=== PATIENT | female | born 1995 | race Asian ===

== ENCOUNTER 2017-08-31 14:49 | Emergency (ER) | payer OTHER ==
[2017-08-31 14:54] VITALS: TEMP 98.2; BMI 22.2
--- NOTE | 2017-08-31 15:47 | PDOC ---
History of Present Illness - History of Present Illness Initial Comments: Patient is a 22 F, , who presents with her for nausea, vomiting , and weakness today. Patient reports that today she began feeling nauseous and vomited (2x) after eating. Patient also reports passing out while sitting on the couch. She states she has not drank any water. She has an appointment with her OBGyn on Saturday. She reports that she has been nauseous throughout her , which also occurred throughout her first . She denies any vaginal discharge, bleeding, spotting, or abdominal cramping. ObGyn: Krystle Jones 08/31/17 16:19 <Fely Butterfield - Last Filed: 08/31/17 16:23> <Love Trammell - Last Filed: 08/31/17 18:46> - General Chief Complaint: Nausea/Vomiting Stated Complaint: WEAKNESS ( 12 WEEKS PREG) Time Seen by Provider: 08/31/17 15:45 Past History <Fely Butterfield - Last Filed: 08/31/17 16:23> - Past Medical History Asthma: No Cancer: No Cardiac Disorders: No Diabetes: No HTN: No Seizures: No Thyroid Disease: No - Suicide/Smoking/Psychosocial Hx Smoking History: Never smoked Have you smoked in the past 12 months: No Information on smoking cessation initiated: No Hx Alcohol Use: No Drug/Substance Use Hx: No Substance Use Type: None Hx Substance Use Treatment: No <Love Trammell - Last Filed: 08/31/17 18:46> - Past Medical History Allergies/Adverse Reactions: Allergies Allergy/AdvReac Type Severity Reaction Status Date / Time No Known Allergies Allergy Verified 08/31/17 14:54 Home Medications: Ambulatory Orders Acetaminophen [Tylenol .Regular Strength -] 650 mg PO Q3H PRN #0 tablet Ferrous Sulfate [Feosol] 325 mg PO BIDWM ud 05/25/16 Vitamins (Sjr) - 1 tab PO DAILY tablet 05/25/16 Review of Systems - Review of Systems Comments:: GENERAL/CONSTITUTIONAL: No fever or chills. No weakness. HEAD, EYES, EARS, NOSE AND THROAT: No change in vision. No ear pain or discharge. No sore throat. GASTROINTESTINAL: +nausea, +vomiting, no diarrhea or constipation. GENITOURINARY: No dysuria, frequency, or change in urination. CARDIOVASCULAR: No chest pain or shortness of breath. RESPIRATORY: No cough, wheezing, or hemoptysis. MUSCULOSKELETAL: No joint or muscle swelling or pain. No neck or back pain. SKIN: No rash NEUROLOGIC: No headache, vertigo, loss of consciousness, or change in strength/ sensation. ENDOCRINE: No increased thirst. No abnormal weight change. HEMATOLOGIC/LYMPHATIC: No anemia, easy bleeding, or history of blood clots. ALLERGIC/IMMUNOLOGIC: No hives or skin allergy. <Fely Butterfield - Last Filed: 08/31/17 16:23> *Physical Exam - Vital Signs Last Vital Signs Temp Pulse Resp BP Pulse Ox 98.2 F 77 16 96/53 100 08/31/17 14:52 08/31/17 14:52 08/31/17 14:52 08/31/17 14:52 08/31/17 14:52 - Physical Exam Comments: Constitutional: Awake, alert, oriented. No acute distress. Head: Normocephalic. Atraumatic Eyes: PERRL. EOMI. Conjunctivae are not pale. ENT: Mucous membranes are moist and intact. Posterior pharynx without exudates or erythema. Uvula midline. Neck: Supple. Full ROM. No lymphadenopathy. Cardiovascular: Regular rate. Regular rhythm. S1, S2 regular. Distal pulses are 2+ and symmetric. Pulmonary/Chest: No evidence of respiratory distress. Clear to auscultation bilaterally No wheezing, rales or rhonchi. Abdominal: Soft and non-distended. There is no tenderness. No rebound, guarding or rigidity. No organomegaly. No palpable masses. Good bowel sounds. Back: No CVA tenderness. Musculoskeletal: No edema. No cyanosis. No clubbing. Full range of motion in all extremities. Nocalf tenderness. Radial/pedal pulses are intact and 2+ bilaterally Skin: Skin is warm and dry. No petechiae. No purpura. Neurological: Alert and oriented to person, place, and time. Cranial nerves II -XII are grossly intact. Normal speech. Strength is grossly symmetric. No sensory deficits. Psychiatric: Good eye contact. Normal interaction, affect and behavior. 08/31/17 16:24 <Fely Butterfield - Last Filed: 08/31/17 16:23> - Vital Signs Last Vital Signs Temp Pulse Resp BP Pulse Ox 98.2 F 77 16 96/53 100 08/31/17 14:52 08/31/17 14:52 08/31/17 14:52 08/31/17 14:52 08/31/17 14:52 <Love Trammell - Last Filed: 08/31/17 18:46> ED Treatment Course - LABORATORY CBC & Chemistry Diagram: 08/31/17 16:00 08/31/17 16:00 - ADDITIONAL ORDERS Additional order review: 08/31/17 16:00 RBC 4.64 MCV 78.2 L MCHC 33.7 RDW 13.6 MPV 7.5 Neutrophils % 80.8 Lymphocytes % 12.9 Monocytes % 5.2 Eosinophils % 0.7 Basophils % 0.4 - Medications Given in the ED: ED Medications Discontinued Medications Generic Name Dose Route Start Last Admin Trade Name Garrisonq PRN Reason Stop Dose Admin Metoclopramide HCl 10 mg 08/31/17 16:05 08/31/17 16:16 Reglan Injection - IVPUSH 08/31/17 16:06 10 mg ONCE ONE Administration Sodium Chloride 1,000 ml 08/31/17 16:05 08/31/17 16:16 Normal Saline - IV 08/31/17 16:06 1,000 ml ONCE ONE Administration <Fely Butterfield - Last Filed: 08/31/17 16:23> - LABORATORY CBC & Chemistry Diagram: 08/31/17 16:00 08/31/17 16:00 <Love Trammell - Last Filed: 08/31/17 18:46> Medical Decision Making - Medical Decision Making 08/31/17 16:08 a/p: 22yo at about 12 weeks gestation with n/v x 2 today and "blacked out" for a few seconds on the cough -cramping in the abd -n/v daily but felt worse today -tolerated PO since the episode of vomiting -dehydrated on MM -will check labs, ekg, ua, tvus, duplex LE given calf cramping and preg -will hydrate -will monitor and reassess 08/31/17 18:27 A+ on blood bank vasc studies and 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 Love Trammell, DO, attest that this document has been prepared under my direction and personally reviewed by me in its entirety. I further attest, that it accurately reflects all work, treatment, procedures and medical decision -making performed by me. <Love Trammell - Last Filed: 08/31/17 18:46> Diagnosis at time of Disposition: Nausea and vomiting, - Discharge Dispostion Disposition: HOME Condition at time of disposition: Stable - Referrals Referrals: Krystle Jones MD [Primary Care Provider] - - Patient Instructions Printed Discharge Instructions: DI for Nausea -- Adult Additional Instructions: Please drink plenty of fluids. Please eat frequent small meals. Please keep your appointment on Saturday with your NIGHT MANAGER. Please return to the ED with any further concerns or complaints. - Post Discharge Activity
[2017-08-31] MEDS ORDERED: METOCLOPRAMIDE HCL INJECTION 10 MG/2 ML VIAL IVPUSH ONE (16:05)
[2017-08-31] MEDS ORDERED: SODIUM CHLORIDE 0.9% 1000 ML INFUS.BAG IV ONE (16:05)
[2017-08-31] MEDS ORDERED: PYRIDOXINE HCL (B-6) 100 MG TABLET PO ONE (16:06)
[2017-08-31 16:08] LABS: URINE APPEARANCE CLEAR; URINE BILIRUBIN NEGATIVE (<2.0 mg/dL); URINE BLOOD NEGATIVE (NEGATIVE); URINE COLOR AMBER; URINE GLUCOSE (UA) NEGATIVE (NEGATIVE); URINE KETONE NEGATIVE (NEGATIVE); URINE LEUK ESTERASE NEGATIVE (NEGATIVE); URINE NITRITE NEGATIVE (NEGATIVE); URINE PROTEIN NEGATIVE (NEGATIVE)
[2017-08-31 16:09] LABS: BASO % 0.4 % (0-2.0); EOS % 0.7 % (0-4.5); HEMATOCRIT 36.3 % (32.4-45.2); HEMOGLOBIN 12.2 GM/dL (10.7-15.3); LYMPH % 12.9 % (8-40); MCH 26.4 pg (25.7-33.7); MCHC 33.7 g/dl (32.0-36.0); MEAN CELL VOLUME 78.2 fl (80-96); MEAN PLT VOLUME 7.5 fl (7.5-11.1); MONO % 5.2 % (3.8-10.2); NEUT % 80.8 % (42.8-82.8); PLATELET COUNT 283 K/MM3 (134-434); RBC 4.64 M/mm3 (3.60-5.2); RDW 13.6 % (11.6-15.6); WHITE BLOOD COUNT 8.8 K/mm3 (4.0-10.0)
[2017-08-31] MEDS ORDERED: METOCLOPRAMIDE HCL INJECTION 10 MG/2 ML VIAL ONE (16:13)
[2017-08-31 16:35] LABS: ANION GAP 6 (8-16); BILIRUBIN,TOTAL 0.3 mg/dL (0.2-1.0); BLOOD UREA NITROGEN 6 mg/dL (7-18); CALCIUM 8.7 mg/dL (8.5-10.1); CHLORIDE 105 mmol/L (98-107); CO2 25 mmol/L (21-32); CREATININE 0.5 mg/dL (0.55-1.02); GLUCOSE,RANDOM 75 mg/dL (74-106); LIPASE 124 U/L (73-393); MAGNESIUM 1.7 mg/dL (1.8-2.4); POTASSIUM 4.4 mmol/L (3.5-5.1); SGOT/AST 17 U/L (15-37); SGPT/ALT 20 U/L (12-78); SODIUM 136 mmol/L (136-145)
[2017-08-31 16:51] LABS: ALK PHOS 71 U/L (45-117)
[2017-08-31 18:29] VITALS: BP 92/63; PULSE 84
--- NOTE | 2017-09-01 11:50 | EKG ---
Test Reason : Blood Pressure : / mmHG Vent. Rate : 070 BPM Atrial Rate : 070 BPM P-R Int : 148 ms QRS Dur : 072 ms QT Int : 386 ms P-R-T Axes : 041 058 033 degrees QTc Int : 416 ms NORMAL SINUS RHYTHM LOW VOLTAGE QRS BORDERLINE ECG NO PREVIOUS ECGS AVAILABLE Confirmed by MD Terrie, Ian ([id number]) on 09/01/2017 11:50:31 AM Referred By: Confirmed By:Ian Falcon MD
== END 2017-08-31 19:10 | disposition home or self-care (01) ==
LOC: JER 14:49
PROC: 3E0337Z Introduction of Electrolytic and Water Balance Substance into Peripheral Vein, Percutaneous Approach (ICD-10-PCS; principal; 2017-08-31)
PROC: 3E033GC Introduction of Other Therapeutic Substance into Peripheral Vein, Percutaneous Approach (ICD-10-PCS; 2017-08-31)
DX: O26.891 Other specified pregnancy related conditions, first trimester (principal); O21.0 Mild hyperemesis gravidarum; Z3A.12 12 weeks gestation of pregnancy
CPT/HCPCS: 36415; 76801-TC; 80053; 81003; 83690; 83735; 84702; 85025; 86850; 86900; 86901; 93005; 93010; 93970-TC; 99285-25; J7030

== ENCOUNTER 2018-03-03 07:45 | Inpatient (IN) | payer OTHER ==
[2018-03-03] MEDS ORDERED: BISACODYL 10 MG SUPP.RECT RC PRN (08:40)
[2018-03-03] MEDS ORDERED: METHYLERGONOVINE MALEATE 0.2 MG/1 ML AMP IM PRN (08:40)
[2018-03-03] MEDS ORDERED: BENZOCAINE 20% 57 GM BOTTLE TP PRN (08:40)
[2018-03-03] MEDS ORDERED: BENZOCAINE 28 GM HEMORRHOIDAL OINTMENT TP PRN (08:40)
[2018-03-03] MEDS ORDERED: WITCH HAZEL 50% (TUCKS) 40 PAD/JAR PAD TP PRN (08:40)
[2018-03-03] MEDS ORDERED: OXYTOCIN 20 UNITS in 0.9% NS 20 UNIT/1,000 ML INFUS.BAG IV SCH (08:45)
--- NOTE | 2018-03-03 08:47 | PN ---
Delivery - Delivery Vaginal Delivery: Other (Extramural delivery.) Episiotomy/Laceration: Left Mediolateral, 2nd degree EBL (cc): 500 (Placenta delivered; intact.) Remarks - Remarks Remarks: Patient examined. Placenta delivered spontaneously, intact. Laceration repaired with Chromic 3-0. No problems.
[2018-03-03 08:56] VITALS: BMI 27.4
[2018-03-03] MEDS ORDERED: OXYTOCIN 20 UNITS in 0.9% NS 20 UNIT/1,000 ML INFUS.BAG IV ONE (09:24)
[2018-03-03 09:34] LABS: INR 0.89 (0.83-1.09); PROTHROMBIN TIME (PATIENT) 10.5 SEC (9.7-13.0)
[2018-03-03 09:37] LABS: ACTIVATED PTT 25.3 SECONDS (25.2-36.5)
[2018-03-03 09:43] LABS: ANION GAP 9 MMOL/L (8-16); BLOOD UREA NITROGEN 11 mg/dL (7-18); CALCIUM 7.8 mg/dL (8.5-10.1); CHLORIDE 105 mmol/L (98-107); CO2 21 mmol/L (21-32); CREATININE 0.6 mg/dL (0.55-1.3); GLUCOSE,RANDOM 103 mg/dL (74-106); POTASSIUM 4.5 mmol/L (3.5-5.1); SODIUM 135 mmol/L (136-145)
[2018-03-03] MEDS ORDERED: PRENATAL VITAMINS W/ FOLIC ACID TABLET (FP) PO SCH (10:00)
[2018-03-03 10:28] LABS: BASO % 0.1 % (0-2.0); HEMATOCRIT 31.2 % (32.4-45.2); HEMOGLOBIN 10.1 GM/dL (10.7-15.3); LYMPH % 4.6 % (8-40); MCH 23.7 pg (25.7-33.7); MCHC 32.5 g/dl (32.0-36.0); MEAN CELL VOLUME 72.9 fl (80-96); MEAN PLT VOLUME 8.4 fl (7.5-11.1); MONO % 3.2 % (3.8-10.2); NEUT % 92.1 % (42.8-82.8); PLATELET COUNT 285 K/MM3 (134-434); RBC 4.28 M/mm3 (3.60-5.2); RDW 14.5 % (11.6-15.6); WHITE BLOOD COUNT 17.6 K/mm3 (4.0-10.0)
[2018-03-03] MEDS: FERROUS SO4 325 MG TABLET (FP) PO SCH ×2 (11:44→16:51)
[2018-03-03] MEDS: PRENATAL VITAMINS W/ FOLIC ACID TABLET (FP) PO SCH (11:44)
[2018-03-03 14:25] LABS: ANISOCYTOSIS 1+; MACROCYTOSIS 0; PLATELET ESTIMATE NORMAL
[2018-03-03] MEDS: IBUPROFEN 600 MG TABLET (FP) PO PRN ×2 (15:02→21:21)
[2018-03-03] MEDS: ACETAMINOPHEN 325 MG TABLET (FP) PO PRN ×2 (15:03→21:21)
[2018-03-04] MEDS: IBUPROFEN 600 MG TABLET (FP) PO PRN ×3 (01:32→17:43)
[2018-03-04] MEDS: ACETAMINOPHEN 325 MG TABLET (FP) PO PRN ×3 (01:32→17:43)
[2018-03-04 07:09] LABS: BASO % 0.2 % (0-2.0); EOS % 1.5 % (0-4.5); HEMATOCRIT 27.7 % (32.4-45.2); HEMOGLOBIN 8.5 GM/dL (10.7-15.3); LYMPH % 23.6 % (8-40); MCH 22.3 pg (25.7-33.7); MCHC 30.8 g/dl (32.0-36.0); MEAN CELL VOLUME 72.4 fl (80-96); MEAN PLT VOLUME 8.2 fl (7.5-11.1); MONO % 6.2 % (3.8-10.2); NEUT % 68.5 % (42.8-82.8); PLATELET COUNT 251 K/MM3 (134-434); RBC 3.82 M/mm3 (3.60-5.2); RDW 14.4 % (11.6-15.6); WHITE BLOOD COUNT 11.3 K/mm3 (4.0-10.0)
[2018-03-04] MEDS: FERROUS SO4 325 MG TABLET (FP) PO SCH ×3 (09:29→17:39)
[2018-03-04] MEDS: PRENATAL VITAMINS W/ FOLIC ACID TABLET (FP) PO SCH (09:29)
--- NOTE | 2018-03-04 11:59 | PN ---
Post Progress Note Type of Delivery: Vital Signs: Vital Signs Temperature 98.5 F 03/04/18 10:00 Pulse Rate 88 03/04/18 10:00 Respiratory Rate 16 03/04/18 10:00 Blood Pressure 106/60 03/04/18 10:00 O2 Sat by Pulse Oximetry (%) 100 03/03/18 08:45 Breast Exam: Yes: Soft, Engorged Uterus: Yes: Fundus Firm, Fundus below umbilicus Abdomen/GI: Yes: Abdomen soft, Passing flatus Lochia: Yes: Rubra Lochia, amount: Small Extremities: Yes: Calves non-tender Activity: Ambulating - Labs Labs: CBC WBC 11.3 K/mm3 (4.0-10.0) H 03/04/18 06:00 RBC 3.82 M/mm3 (3.60-5.2) 03/04/18 06:00 Hgb 8.5 GM/dL (10.7-15.3) L 03/04/18 06:00 Hct 27.7 % (32.4-45.2) L 03/04/18 06:00 MCV 72.4 fl (80-96) L 03/04/18 06:00 MCH 22.3 pg (25.7-33.7) L 03/04/18 06:00 MCHC 30.8 g/dl (32.0-36.0) L 03/04/18 06:00 RDW 14.4 % (11.6-15.6) 03/04/18 06:00 Plt Count 251 K/MM3 (134-434) 03/04/18 06:00 MPV 8.2 fl (7.5-11.1) 03/04/18 06:00 Absolute Neuts (auto) 7.8 K/mm3 (1.5-8.0) 03/04/18 06:00 Neutrophils % 68.5 % (42.8-82.8) D 03/04/18 06:00 Neutrophils % (Manual) 93.1 % (42.8-82.8) H 03/03/18 09:00 Band Neutrophils % 1.0 % 03/03/18 09:00 Lymphocytes % 23.6 % (8-40) D 03/04/18 06:00 Lymphocytes % (Manual) 3.0 % (8-40) L 03/03/18 09:00 Monocytes % 6.2 % (3.8-10.2) D 03/04/18 06:00 Monocytes % (Manual) 3 % (3.8-10.2) L 03/03/18 09:00 Eosinophils % 1.5 % (0-4.5) D 03/04/18 06:00 Eosinophils % (Manual) 0.0 % (0-4.5) 03/03/18 09:00 Basophils % 0.2 % (0-2.0) 03/04/18 06:00 Basophils % (Manual) 0.0 % (0-2.0) 03/03/18 09:00 Myelocytes % (Man) 0 % (0-2) 03/03/18 09:00 Promyelocytes % (Man) 0 % (0-2) 03/03/18 09:00 Blast Cells % (Manual) 0 % (0-0) 03/03/18 09:00 Nucleated RBC % 0 % (0-0) 03/04/18 06:00 Metamyelocytes 0 % (0-2) 03/03/18 09:00 Hypochromia 0 03/03/18 09:00 Platelet Estimate Normal 03/03/18 09:00 Polychromasia 0 03/03/18 09:00 Poikilocytosis 0 03/03/18 09:00 Anisocytosis 1+ 03/03/18 09:00 Microcytosis 1+ 03/03/18 09:00 Macrocytosis 0 03/03/18 09:00 Other Findings, Remarks: Patient is doing well. Nursing without problems. All fully discussed. Anticipating discharge tomorrow.
[2018-03-04] MEDS ORDERED: SENNOSIDES/DOCUSATE COMBO (SENNA PLUS) TABLET (UD) PO PRN (22:00)
[2018-03-05] MEDS: IBUPROFEN 600 MG TABLET (FP) PO PRN (06:48)
[2018-03-05] MEDS: ACETAMINOPHEN 325 MG TABLET (FP) PO PRN (06:49)
[2018-03-05] MEDS: FERROUS SO4 325 MG TABLET (FP) PO SCH (08:21)
[2018-03-05 09:40] VITALS: BP 110/66; PULSE 74; TEMP 97.7
[2018-03-05] MEDS: PRENATAL VITAMINS W/ FOLIC ACID TABLET (FP) PO SCH (10:45)
== END 2018-03-05 11:55 | disposition home or self-care (01) | DRG 560 ==
LOC: JLDR 07:45 → J3W 10:00
PROVIDERS: ADMIT Specialist; ATTEND Specialist
PROC: 10E0XZZ Delivery of Products of Conception, External Approach (ICD-10-PCS; principal; 2018-03-03)
PROC: 0W8NXZZ Division of Female Perineum, External Approach (ICD-10-PCS; 2018-03-03)
DX: O70.1 Second degree perineal laceration during delivery (principal); Z3A.38 38 weeks gestation of pregnancy; Z37.0 Single live birth
CPT/HCPCS: 36415; 59025; 59409; 80048; 85025; 85610; 85730; 86593; 86850; 86900; 86901

== ENCOUNTER 2018-08-01 22:05 | Emergency (ER) | payer OTHER ==
--- NOTE | 2018-08-01 22:20 | PDOC ---
History of Present Illness - General Chief Complaint: Cold Symptoms Stated Complaint: COLD SYMPTOMS Time Seen by Provider: 08/01/18 22:20 History Source: Patient Exam Limitations: No Limitations - History of Present Illness Initial Comments: 08/01/18 22:38 23 year old female with no PMH presented to ED for cough/congestion x2 weeks and chest pain with coughing x2 days. Pt admitted to rhinorrhea, nasal congestion, sore throat. Pt denied sputum production, fever, nausea, vomiting, diarrhea, abdominal pain, shortness of breath, hemoptysis. Pt stated she was seen at urgent care today, rapid strep testing was negative, pt was prescribed an antihistamine and sent home without resolution of symptoms, which prompted her to come to the ED. Pt stated she took ibuprofen 200 mg at 1600 today without relief of symptoms. Allergies: NKDA Past History - Past Medical History Allergies/Adverse Reactions: Allergies Allergy/AdvReac Type Severity Reaction Status Date / Time No Known Allergies Allergy Verified 08/01/18 22:22 Home Medications: Ambulatory Orders Vitamins (Sjr) - 1 tab PO DAILY tablet 05/25/16 Asthma: No Cancer: No Cardiac Disorders: No COPD: No Diabetes: No HTN: No Seizures: No Thyroid Disease: No - Reproductive History (#): 2 Para: 1 Therapeutic (s) & number: No Spontaneous : 0 - Suicide/Smoking/Psychosocial Hx Smoking History: Never smoked Have you smoked in the past 12 months: No Hx Alcohol Use: No Drug/Substance Use Hx: No Substance Use Type: None Hx Substance Use Treatment: No Review of Systems - Review of Systems Able to Perform ROS?: Yes Comments:: 08/01/18 22:39 General: admitted to body aches, generalized weakness. denied fever. HEENT: admitted to sore throat, rhinorrhea, nasal congestion. denied ear pain. Heart: admitted to pleuritic chest pain. denied palpitations, syncope, diaphoresis. Respiratory: admitted to cough. denied shortness of breath, sputum production, hemoptysis. Abdomen: denied abdominal pain, nausea, vomiting, diarrhea, constipation, blood in stool. : denied dysuria, increased urinary frequency, hematuria, urinary incontinence , flank pain. Back: denied back pain. Musculoskeletal: denied joint pain, joint swelling. Neurological: denied headache, dizziness, numbness, tingling, weakness. Skin: denied rash, laceration, abrasion. *Physical Exam - Physical Exam Comments: 08/01/18 22:41 Constitutional: Well-nourished, Well-developed, appearing stated age. HEENT: head is normocephalic, atraumatic. EOMI. PERRLA. no posterior pharyngeal erythema. no tonsillar swelling bilaterally. no tonsillar exudates bilaterally. nasal congestion. Neck: supple. Full ROM. Heart: regular rhythm. no murmurs, rubs or gallops. Lungs: clear to auscultation bilaterally. no crackles, rhonchi or wheezing. no stridor. Abdomen: soft, nontender. normal bowel sounds. no rebound, guarding, masses. Extremities: peripheral pulses intact. no lower extremity edema. Neurological: CN 2-12 grossly intact. moves all four extremities. Psych: awake, alert, oriented x3. follows commands. answers questions appropriately. Medical Decision Making - Medical Decision Making 08/01/18 22:42 23 year old female with no PMH presented to ED for cough/congestion/rhinorrhea/ sore throat x2 weeks, pleuritic chest pain x2 days. Initial Vital Signs Temp Pulse Resp BP Pulse Ox 100.5 F H 111 H 18 117/71 100 08/01/18 22:18 08/01/18 22:18 08/01/18 22:18 08/01/18 22:18 08/01/18 22:18 Febrile. Tachycardia. No tachypnea. No hypotension. No hypoxia on room air. Rapid strep testing today was negative per urgent care paperwork. Labs ordered: influenza testing, urine testing Imaging ordered: none Medications ordered: Tylenol 975 mg PO once 08/01/18 22:56 Urine testing negative. 08/01/18 23:47 Pt reassessed, reported improvement of symptoms. Disposition: Discharged Call back placed for influenza testing results. 08/04/18 10:43 Follow up: influenza A/B testing negative. *DC/Admit/Observation/Transfer Diagnosis at time of Disposition: Viral respiratory illness - Discharge Dispostion Disposition: HOME - Referrals Referrals: Chari Paris [Primary Care Provider] - - Patient Instructions Additional Instructions: Your urine testing was negative. Your influenza testing is pending, you will be called if it is positive. Take Tylenol over the counter for your fever, take as advised on label. You can add Motrin for pain, take 600 mg every 8 hours as needed. Drink lots of gatorade and pedialyte to stay hydrated. Rest the next 1-2 days. Follow up with your primary care doctor in within 5 days. Your care is not complete until you follow up. Return to the Emergency Department for increasing pain despite tylenol/motrin use, fever>104F despite tylenol use, fever>5 days, vomiting, lightheadedness like you may pass out, shortness of breath, or any other new, worsening or concerning symptoms. - Post Discharge Activity
[2018-08-01 22:21] VITALS: TEMP 100.5; BMI 20.6
[2018-08-01] MEDS ORDERED: ACETAMINOPHEN 325 MG TABLET (FP) PO ONE (22:31)
[2018-08-01] MEDS ORDERED: ACETAMINOPHEN 325 MG TABLET (FP) ONE (22:34)
[2018-08-01 23:26] VITALS: BP 119/70; PULSE 98
[2018-08-01] MEDS ORDERED: KETOROLAC TROMETHAMINE 60 MG/2 ML VIAL IM ONE (23:59)
--- NOTE | 2018-08-02 00:02 | PDOC ---
Documentation entered by Claribel Ospina SCRIBE, acting as scribe for Shasha Monitel MD. Shasha Montiel MD: This documentation has been prepared by the Anai ramsay Adrianna, SCRIBE, under my direction and personally reviewed by me in its entirety. I confirm that the documentation accurately reflects all work, treatment, procedures, and medical decision making performed by me. Attending Attestation - Resident Resident Name: Viktoria Serra - [facility] HPI: The patient is a 23 year old female, with no significant PMH, who presents to the emergency department today complaining of cough and congestion for 2 weeks, and chest pain for 2 days. Patient notes a non-productive cough with associated nasal congestion, rhinorrhea, and sore throat over the past 2 weeks. She was seen in Urgent Care today for these symptoms, and rapid strep was negative. She was given an antihistamine and discharged. She endorses new chest pain, which is primarily right-sided and radiates to her neck and back. She has tried Ibuprofen without relief. Patient returns to the ED because her symptoms have not resolved and new onset chest pain has begun. The patient denies shortness of breath, headache and dizziness. Denies fever, chills, nausea, vomit, diarrhea and constipation. Denies dysuria, frequency, urgency and hematuria. Allergies: NKA Past surgical history: None reported Social history: No reported PCP: Dr. Chari Paris 08/01/18 23:46 - Physicial Exam PE: GENERAL: Awake, alert, and fully oriented, in no acute distress HEAD: No signs of trauma EYES: PERRLA, EOMI, sclera anicteric, conjunctiva clear ENT: Auricles normal inspection, hearing grossly normal, nares patent, oropharynx clear without exudates. Moist mucosa NECK: Normal ROM, supple, no lymphadenopathy, JVD, or masses LUNGS: Breath sounds equal, clear to auscultation bilaterally. No wheezes, and no crackles HEART: Regular rate and rhythm, normal S1 and S2, no murmurs, rubs or gallops ABDOMEN: Soft, nontender, normoactive bowel sounds. No guarding, no rebound. No masses EXTREMITIES: Normal range of motion, no edema. No clubbing or cyanosis. No cords, erythema, or tenderness NEUROLOGICAL: Cranial nerves II through XII grossly intact. Normal speech, normal gait SKIN: Warm, Dry, normal turgor, no rashes or lesions noted. 08/01/18 23:46 - Medical Decision Making 08/01/18 23:59 Pt presents to the ED complaining of a two week history of nasal congestion, sore throat, myalgias and generalized malaise. Seen in urgent care, negative rapid strep. Most likely viral URI. Will discharge home. 08/02/18 00:00 08/02/18 00:01
[2018-08-02] MEDS ORDERED: KETOROLAC TROMETHAMINE 60 MG/2 ML VIAL ONE (00:03)
== END 2018-08-02 00:09 | disposition home or self-care (01) ==
LOC: JER 22:05
PROC: 3E0233Z Introduction of Anti-inflammatory into Muscle, Percutaneous Approach (ICD-10-PCS; principal; 2018-08-01)
DX: J06.9 Acute upper respiratory infection, unspecified (principal); B97.89 Other viral agents as the cause of diseases classified elsewhere
CPT/HCPCS: 84703; 87804; 96372; 99281-25

== ENCOUNTER 2020-03-01 16:30 | Inpatient (IN) | payer OTHER ==
[2020-03-01] MEDS ORDERED: ELECTROLYTE-148 SOLN 1,000 ML IV SCH (17:15)
[2020-03-01 17:37] VITALS: BMI 27.4
[2020-03-01] MEDS ORDERED: OXYTOCIN 30 UNITS in 0.9% NS 30 UNIT/500 ML INFUS.BAG IVPB ONE (17:57)
[2020-03-01] MEDS ORDERED: OXYTOCIN 30 UNITS in 0.9% NS 30 UNIT/500 ML INFUS.BAG IVPB SCH (18:00)
[2020-03-01 18:43] LABS: BASO % 0.2 % (0-2.0); EOS % 0.6 % (0-4.5); HEMATOCRIT 33.9 % (32.4-45.2); HEMOGLOBIN 10.9 GM/dL (10.7-15.3); LYMPH % 15.8 % (8-40); MCH 23.7 pg (25.7-33.7); MCHC 32.1 g/dl (32.0-36.0); MEAN CELL VOLUME 73.8 fl (80-96); MEAN PLT VOLUME 8.6 fl (7.5-11.1); MONO % 7.6 % (3.8-10.2); NEUT % 75.8 % (42.8-82.8); PLATELET COUNT 260 K/MM3 (134-434); RBC 4.59 M/mm3 (3.60-5.2); RDW 17.1 % (11.6-15.6); WHITE BLOOD COUNT 9.6 K/mm3 (4.0-10.0)
[2020-03-01 18:53] LABS: INR 0.88 (0.83-1.09); PROTHROMBIN TIME (PATIENT) 10.7 SEC (9.7-13.0)
[2020-03-01 18:55] LABS: ACTIVATED PTT 27.6 SECONDS (25.2-36.5)
[2020-03-01 19:05] LABS: POTASSIUM 3.8 mmol/L (3.5-5.1)
[2020-03-01 19:07] LABS: CALCIUM 8.3 mg/dL (8.5-10.1)
[2020-03-01 19:08] LABS: BLOOD UREA NITROGEN 9.8 mg/dL (7-18)
[2020-03-01 19:10] LABS: CREATININE 0.6 mg/dL (0.55-1.3)
[2020-03-01] MEDS ORDERED: PCA PUMP NR ONE (21:07)
[2020-03-01] MEDS ORDERED: FENTANYL/BUPIVACAINE/NS/PF - PCEA - 50 ML DISP.SYRIN EP ONE (21:07)
[2020-03-01] MEDS ORDERED: NALOXONE HCL 0.4 MG/ML VIAL IVPUSH PRN (21:18)
[2020-03-01] MEDS ORDERED: BUPIVACAINE HCL/PF 0.25% (2.5MG/ML) 10 ML VIAL ONE (21:19)
[2020-03-01] MEDS ORDERED: FENTANYL/BUPIVACAINE/NS/PF - PCEA - 50 ML DISP.SYRIN EP SCH (21:30)
[2020-03-01] MEDS ORDERED: OXYTOCIN 20 UNITS in 0.9% NS 20 UNIT/1,000 ML INFUS.BAG IV ONE (22:48)
[2020-03-02] MEDS ORDERED: WITCH HAZEL 50% (TUCKS) 40 PAD/JAR PAD TP PRN (01:03)
[2020-03-02] MEDS ORDERED: BENZOCAINE 20% 57 GM BOTTLE TP PRN (01:03)
[2020-03-02] MEDS ORDERED: METHYLERGONOVINE MALEATE 0.2 MG/1 ML AMP IM PRN (01:03)
[2020-03-02] MEDS ORDERED: BISACODYL 10 MG SUPP.RECT RC PRN (01:03)
[2020-03-02] MEDS ORDERED: BENZOCAINE 28 GM HEMORRHOIDAL OINTMENT TP PRN (01:03)
[2020-03-02] MEDS ORDERED: OXYTOCIN 20 UNITS in 0.9% NS 20 UNIT/1,000 ML INFUS.BAG IV SCH (01:15)
[2020-03-02] MEDS: IBUPROFEN 600 MG TABLET (FP) PO PRN ×3 (02:44→18:41)
[2020-03-02] MEDS: ACETAMINOPHEN 325 MG TABLET (FP) PO PRN ×3 (02:45→18:41)
[2020-03-02] MEDS: FERROUS SO4 325 MG TABLET (FP) PO SCH ×2 (08:31→17:16)
[2020-03-02] MEDS: PRENATAL VITAMINS W/ FOLIC ACID TABLET (FP) PO SCH (09:19)
[2020-03-03] MEDS: FERROUS SO4 325 MG TABLET (FP) PO SCH (08:19)
[2020-03-03] MEDS: ACETAMINOPHEN 325 MG TABLET (FP) PO PRN (08:19)
[2020-03-03] MEDS: IBUPROFEN 600 MG TABLET (FP) PO PRN (08:20)
[2020-03-03 08:32] LABS: BASO % 0.2 % (0-2.0); EOS % 2.5 % (0-4.5); HEMOGLOBIN 10.5 GM/dL (10.7-15.3); LYMPH % 19.3 % (8-40); MCH 23.3 pg (25.7-33.7); MCHC 31.7 g/dl (32.0-36.0); MEAN CELL VOLUME 73.5 fl (80-96); MEAN PLT VOLUME 7.9 fl (7.5-11.1); MONO % 6.6 % (3.8-10.2); NEUT % 71.4 % (42.8-82.8); PLATELET COUNT 236 K/MM3 (134-434); RBC 4.49 M/mm3 (3.60-5.2); RDW 17.9 % (11.6-15.6); WHITE BLOOD COUNT 10.5 K/mm3 (4.0-10.0)
[2020-03-03] MEDS: PRENATAL VITAMINS W/ FOLIC ACID TABLET (FP) PO SCH (09:49)
[2020-03-03 10:30] VITALS: BP 121/73; PULSE 75; TEMP 97.9
[2020-03-03] MEDS ORDERED: SENNOSIDES/DOCUSATE COMBO (SENNA PLUS) TABLET (UD) PO PRN (22:00)
== END 2020-03-03 12:25 | disposition home or self-care (01) | DRG 560 ==
LOC: JLDR 16:30 → J3W 03-02 01:57
PROVIDERS: ADMIT Obstetrics & Gynecology; ATTEND Obstetrics & Gynecology
PROC: 10E0XZZ Delivery of Products of Conception, External Approach (ICD-10-PCS; principal; 2020-03-02)
PROC: 0W8NXZZ Division of Female Perineum, External Approach (ICD-10-PCS; 2020-03-02)
DX: O80 Encounter for full-term uncomplicated delivery (principal); Z3A.39 39 weeks gestation of pregnancy; Z37.0 Single live birth
CPT/HCPCS: 36415; 59409; 80048; 85025; 85610; 85730; 86780; 86850; 86900; 86901; C9803; U0003